=== PATIENT | male | born 1960 | race Caucasian/White ===

== ENCOUNTER → 2018-09-28 | Outpatient (CLI) | payer BC ==
--- NOTE | 2018-09-28 17:45 | US ---
EXAMINATION TYPE: US prostate transrectal DATE OF EXAM: 09/28/2018 COMPARISON: NONE CLINICAL HISTORY: R97.20 elevated PSA level. Elevated PSA This examination was performed using the transrectal probe. EXAM MEASUREMENTS: Gland Size: 5.3 x 3.9 x 4.5cm Volume: 48.6ml Predicted PSA: 5.8 Actual PSA (if available):3.1 Seminal vesicles are slightly bulky on initial images. There is heterogeneous enlarged prostate gland without discrete nodule identified. IMPRESSION: Enlarged prostate consistent with BPH. No suspicious nodules. Predicted PSA = volume x 0.12 ng/ml Calculated Volume = 0.5236 x L x W x H
== END ==
LOC: RADUSMAIN 07:09
PROVIDERS: ATTEND Family Medicine
DX: N40.0 Benign prostatic hyperplasia without lower urinary tract symptoms (principal)
CPT/HCPCS: 76872

== ENCOUNTER → 2023-08-08 | Outpatient (CLI) | payer OTHER ==
--- NOTE | 2023-08-08 09:00 | MR ---
EXAMINATION TYPE: MR elbow RT wo con DATE OF EXAM: 08/08/2023 COMPARISON: No radiographic correlation available. HISTORY: 63-year-old male right elbow pain and swelling after injury 2 weeks ago. S46.391A FASCIA AN D TENDON OF TRICEPS, RIGHT ARM TECHNIQUE: Multiplanar, multisequence images of the right elbow were obtained without IV contrast. FINDINGS: There is morris rupture of the triceps insertion with associated hemorrhage and soft tissue swelling. The bulk of the retracted stump is located 1.6 cm above the olecranon with the patient's elbow is ext ended. Suspect medial head fiber retraction by 2.5 cm. Reactive edema within the triceps musculature. Both radiocapitellar and ulnotrochlear joints are intact without significant joint effusion. The common extensor tendon origin and underlying RCL appears intact. There is focal tendinosis and a tiny 4 mm intrasubstance tear at the common flexor tendon origin. Und erlying UCL appears intact. The distal biceps tendon remains intact. There is mild thickening and mild increased signal within the ulnar nerve prior to the sulcus ulnaris with a cross-sectional area of 13 sq mm. No acute or healing fracture is seen. IMPRESSION: 1. Morris rupture of the triceps insertion. Extensive associated soft tissue swelling and edema. 2. With the elbow extended, the bulk of the retracted stump is 1.6 cm above the olecranon. Medial hea d fibers may be retracted up to 2.5 cm. 3. Either tendinosis or mild contusion of the ulnar nerve prior to the sulcus ulnaris, cross-sectiona l area of 13 sq mm. 4. Focal tendinosis and a tiny 4 mm intrasubstance tear at the common flexor tendon origin.
== END | disposition home or self-care (01) ==
LOC: RADMRIMAIN 06:22
PROVIDERS: ATTEND Orthopaedic Surgery
DX: S46.391A Other injury of muscle, fascia and tendon of triceps, right arm, initial encounter (principal); M25.251 Flail joint, right hip; S46.311A Strain of muscle, fascia and tendon of triceps, right arm, initial encounter; M67.823 Other specified disorders of tendon, right elbow; R60.0 Localized edema